=== PATIENT | male | born 1995 | race Caucasian/White ===

== ENCOUNTER 2020-04-24 17:24 | Emergency (ER) | payer BC ==
[2020-04-24 17:39] VITALS: BP 134/64; PULSE 52; TEMP 98.6; BMI 32.1
--- NOTE | 2020-04-24 18:13 | PDOC ---
History of Present Illness - General History Source: Patient Exam Limitations: No Limitations - History of Present Illness Initial Comments: 04/24/20 18:08 25-year-old male no significant past medical history presenting to the ED with 2 days of chest pain. 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 Patient states he woke up the following day with left-sided chest pain exacerbated on arm abduction. Chest pain not association with exertion shortness of breath cough or any cardiac symptoms. Patient denies family history of AMI under the age of 5555 year old, sudden cardiac , history of DVT/PE/hypercoagulopathy or aneurysms. Patient took ibuprofen with some improvement. Pt otherwise denies: fevers, chills, syncope, lightheadedness, dizziness, headaches, neck pain, shortness of breath, palpitations, back pain, abdominal pain, nausea, vomiting, diarrhea, constipation. <Adonis Dominguez - Last Filed: 04/24/20 18:27> <Feli Collado - Last Filed: 04/25/20 00:02> - General Chief Complaint: Chest Pain Stated Complaint: CHEST/SHOULDER PAIN Time Seen by Provider: 04/24/20 17:52 Past History - Psycho-Social/Smoking History Smoking Status: No Smoking History: Never smoked Number of Cigarettes Smoked Daily: 0 - Substance Abuse Hx (Audit-C & DAST Scrn) How often the patient has a drink containing alcohol: Never Score: In Men: 4 or > Positive; In Women: 3 or > Positive: 0 Screen Result (Pos requires Nsg. Audit-10AR): Negative In the last yr the pt used illegal drug/Rx for NonMed reason: No Score: Yes response is considered Positive: 0 Screen Result (Positive result requires Nsg. DAST-10): Negative <Adonis Dominguez - Last Filed: 04/24/20 18:27> <Feli Collado - Last Filed: 04/25/20 00:02> - Medical History Allergies/Adverse Reactions: Allergies Allergy/AdvReac Type Severity Reaction Status Date / Time No Known Allergies Allergy Verified 04/24/20 17:34 Home Medications: Ambulatory Orders Amox-Tr/K Cl [Augmentin 875Mg Tablet] 1 tab PO BID #20 tablet 09/24/12 No Home Medications 0 dose .ROUTE UTDICT 09/24/12 *Physical Exam - Vital Signs Last Vital Signs Temp Pulse Resp BP Pulse Ox 98.6 F 52 L 18 134/64 100 04/24/20 17:35 04/24/20 17:35 04/24/20 17:35 04/24/20 17:35 04/24/20 17:35 - Physical Exam 04/24/20 18:10 Gen: AAOx 3, no acute distress, comfortable, no signs of respiratory distress HENT: atraumatic, normocephalic with no laceration or contusion. Nasal mucosa without erythema. Oropharynx without erythema or exudates. Mucous membranes moist. EYES: PERRL, EOM intact, conjunctiva pink NECK: supple; trachea midline; no JVD, no lymphadenopathy, or thyromegaly CV: RRR no murmurs, gallops, or rubs. CHEST: REPRODUCIBLE CHEST PAIN ON PALPATION WELL AGAINST RESISTANCE TO ARM ADDUCTION CTA b/l no wheezing, rales or rhonchi ABD: +BS/ND. no TTP; soft, no rebound, no guarding EXTREMITY: no cyanosis or erythema. 2+ dorsalis pedis, posterior tibial, and radial pulse. No pedal edema; no calf swelling or tenderness SKIN: no rash, warm and dry, no diaphoresis HEME: no purpura or ecchymosis NEURO: normal speech, CN II-XII intact, sensation intact, normal gait, no cerebellar deficits MS: 5/5 strength in all extremities, FROM intact in all extremities. <Adonis Dominguez - Last Filed: 04/24/20 18:27> - Vital Signs Last Vital Signs Temp Pulse Resp BP Pulse Ox 98.6 F 52 L 18 134/64 100 04/24/20 17:35 04/24/20 17:35 04/24/20 17:35 04/24/20 17:35 04/24/20 17:35 <Feli Collado - Last Filed: 04/25/20 00:02> ED Treatment Course - RADIOLOGY Radiology Studies Ordered: Category Date Time Status CHEST PA & LAT [RAD] Stat Radiology 04/24/20 18:03 Ordered <Adonis Dominguez - Last Filed: 04/24/20 18:27> Medical Decision Making - Medical Decision Making 04/24/20 18:13 25-year-old male with MSK chest pain low suspicion of cardiac etiology Vital signs stable except for noted asymptomatic bradycardia EKG at triage sinus bradycardic without any ST elevations or depressions Will obtain chest x-ray Will reassess based on results Chest x-ray within normal limits Patient instructed to continue taking ibuprofen for symptomatic relief and to follow-up with PCP Pt appears well and is safe and stable for discharge with strict return precautions including signs and symptoms requring immediate return to the ED Supportive care instructions explained and given to pt. Reasons to return emergently to ER explained and given. Importance of follow up with PMD and other specialists as indicated stressed to pt. Pt verbalized understanding of instructions. Pt to follow up with PMD in 2 days. <Adonis Dominguez - Last Filed: 04/24/20 18:27> - Medical Decision Making The patient was seen and evaluated in conjunction with midlevel provider under my direct supervision, ancillary studies were reviewed. I agree with the plan as outlined with_DEACON Dominguez. HPI, workup/dispo as outlined. VS reviewed, wnl. anticipate discharge, pcp followup, return precautions 04/25/20 00:02 <Feli Collado - Last Filed: 04/25/20 00:02> Discharge - Discharge Information Problems reviewed: Yes <Adonis Dominguez - Last Filed: 04/24/20 18:27> - Discharge Information Problems reviewed: Yes - Admission No <Feli Collado - Last Filed: 04/25/20 00:02> - Discharge Information Clinical Impression/Diagnosis: Chest pain Condition: Stable Disposition: HOME - Follow up/Referral Referrals: Lopez Husain MD [Primary Care Provider] - - Patient Discharge Instructions Patient Printed Discharge Instructions: DI for Costochondritis Additional Instructions: PLEASE FOLLOW UP WITH YOUR PRIMARY CARE PROVIDER - Post Discharge Activity Work/Back to School Note: Back to Work
--- NOTE | 2020-04-28 15:04 | EKG ---
Test Reason : Blood Pressure : / mmHG Vent. Rate : 054 BPM Atrial Rate : 054 BPM P-R Int : 152 ms QRS Dur : 102 ms QT Int : 428 ms P-R-T Axes : 036 065 034 degrees QTc Int : 405 ms SINUS BRADYCARDIA OTHERWISE NORMAL ECG NO PREVIOUS ECGS AVAILABLE Confirmed by MD Barak, Mark ([id number]) on 04/28/2020 3:04:22 PM Referred By: Confirmed By:Mark Cancino MD
== END 2020-04-24 18:38 | disposition home or self-care (01) ==
LOC: JER 17:24
DX: R07.9 Chest pain, unspecified (principal)
CPT/HCPCS: 71046-TC-FY; 93005; 93010; 99284-25